=== PATIENT | female | born 1975 | race Caucasian/White ===

== ENCOUNTER 2017-02-22 10:29 | Day surgery (SDC) | payer SELFPAY ==
[~2017-02-22] VITALS: Ht 167.6 cm; Wt 83.0 kg
--- NOTE | 2017-02-23 08:09 | OR ---
ADMIT: 02/22/2017 RM/LOC: [facility] MR#: [id number] [address] [address] [place] [address] Operative/Delivery Room Report SEX: F AGE: 41 : 1975 SURGERY DATE: 02/22/2017 SURGEON: Loli Dover MD ELECTRICAL DESIGN ENGINEER: None. PREOPERATIVE DIAGNOSES: 1. Lumbar spondylosis. 2. Lumbago. POSTOPERATIVE DIAGNOSES: 1. Lumbar spondylosis. 2. Lumbago. PROCEDURE PERFORMED: Bilateral lumbar medial branch block at L3, L4, L5, and S1 levels. INDICATION FOR THE PROCEDURE: The patient is a pleasant female with history of chronic low back pain, comes here for planned lumbar medial branch block. ANESTHESIA: Local without sedation. ESTIMATED BLOOD LOSS: Zero. COMPLICATIONS: None immediately evident. DESCRIPTION OF THE PROCEDURE: After the patient was seen in the preoperative area, vital signs were taken. Prior to the procedure, the risks, benefits, and alternative therapies were discussed at length. The patient's consent was obtained and updated. The patient was taken to the fluoroscopy suite and placed on the fluoroscopy table in a prone position. Pressure points were padded to comfort. Monitors were applied and a timeout performed. The lumbosacral area was prepped and draped sterilely using ChloraPrep. C-arm fluoroscopy was then brought in to identify the junction of the pedicular and transverse process. Then lidocaine 1% was applied; approximately 1 mL was used to anesthetize the skin and underlying subcutaneous tissue at bilateral L3, L4, L5 and S1 levels. At each level, a 3.5 inch 22-gauge spinal needle was used. The needle was then advanced to make contact with the superior articular facet at each level, and then needle was placed between the junction ADMIT: 02/22/2017 RM/LOC: [facility] MR#: [id number] [address] [address] [place] [address] Operative/Delivery Room Report SEX: F AGE: 41 : 1975 of the superior articular facet and the transfer process. Then the patient received 0.5 mL of 0.25% Marcaine with approximately 40 mg of Depo-Medrol at each level. The patient had reproduction of typical pain at each level. Then we moved on to the left side; we did the same procedure. The patient tolerated the procedure well. The patient was brought to the PACU where she recovered nicely without any complication. PLAN: The patient was examined after 20 minutes and had 40% reduction of pain. Range of motion, mainly extension, went from 10 degrees of extension to 15 degrees of extension. Discharge instructions were given. Followup as scheduled. The patient was discharged with a tractor trailer truck driver. Loli Dover MD/ timmy JOB #: [id number] CC: Loli Dover MD, Attending Physician NO FAMILY PHYSICIAN, Family Physician
== END 2017-02-22 12:00 | disposition home or self-care (01) ==
LOC: SSS 10:29
PROC: BR16YZZ Fluoroscopy of Lumbar Facet Joint(s) using Other Contrast (ICD-10-PCS; principal; 2017-02-22)
PROC: 3E0T3BZ Introduction of Anesthetic Agent into Peripheral Nerves and Plexi, Percutaneous Approach (ICD-10-PCS; principal; 2017-02-22)
PROC: 3E0T33Z Introduction of Anti-inflammatory into Peripheral Nerves and Plexi, Percutaneous Approach (ICD-10-PCS; principal; 2017-02-22)
DX: G89.4 Chronic pain syndrome (principal); M51.16 Intervertebral disc disorders with radiculopathy, lumbar region; M47.816 Spondylosis without myelopathy or radiculopathy, lumbar region; M54.30 Sciatica, unspecified side; F41.9 Anxiety disorder, unspecified; Z88.0 Allergy status to penicillin; Z79.899 Other long term (current) drug therapy; Z98.890 Other specified postprocedural states; F17.200 Nicotine dependence, unspecified, uncomplicated

== ENCOUNTER 2017-04-18 20:21 | Emergency (ER) | payer SELFPAY ==
--- NOTE | 2017-04-19 09:09 | ER ---
ADMIT: 04/18/2017 RM/LOC: [facility] MR#: [id number] [id number] [place], [place] [address] [place] [address] Emergency Room Report SEX: F AGE: 41 : 1975 DATE: 04/18/2017 PRIMARY PROVIDER: In [place]. SUBJECTIVE: The patient is a 41-year-old female, who presents to the emergency room complaining of injury to her right foot. Apparently, she was trying to put a fence and the panel fell on her foot. She has an abrasion on the top and side of the right foot. PAST MEDICAL HISTORY: Chronic migraine headaches, bulging discs. PAST SURGICAL HISTORY: Elza, T and A, and 2 ectopic pregnancies. MEDICATIONS: Include: 1. Flexeril. 2. Morphine. 3. Tizanidine. SOCIAL HISTORY: She is a smoker, half a pack a day. PHYSICAL EXAMINATION: GENERAL: She is tender. Prefers not to move her ankle. I do not appreciate any deformity in the right extremity. There is an abrasion. The area was dressed with Neosporin and topical antibiotic, Jeremy wrap, and a Cam boot and instructions to follow up with primary provider. Continue her home medications. She is taking morphine at home. Ketorolac if she decides she needs something for pain control and it is already prescribed for her. CLINICAL IMPRESSION: Sprain, right ankle and contusion to right foot. LUDA Matos / Mau Garzon MD / pjl JOB #: [id number] CC: Mau Garzon MD, Attending Physician
== END 2017-04-18 22:25 | disposition home or self-care (01) ==
LOC: ER 20:21
DX: S93.401A Sprain of unspecified ligament of right ankle, initial encounter (principal); S90.31XA Contusion of right foot, initial encounter; F17.210 Nicotine dependence, cigarettes, uncomplicated; Z79.899 Other long term (current) drug therapy; Z90.49 Acquired absence of other specified parts of digestive tract; X58.XXXA Exposure to other specified factors, initial encounter